=== PATIENT | male | born 1960 | race Caucasian/White ===

== ENCOUNTER → 2018-09-09 | Outpatient (CLI) | payer BC ==
--- NOTE | 2018-09-10 09:13 | US ---
EXAMINATION TYPE: US prostate transrectal DATE OF EXAM: 09/09/2018 COMPARISON: US CLINICAL HISTORY: Elevated PSA R97.20. Patient (physician) stated PSA at 4.4ng/ml; nighttime frequenc y per patient. This examination was performed using the transrectal probe. EXAM MEASUREMENTS: Gland Size: 5.4 x 5.6 x 4.8 Volume: 76.0ml Predicted PSA: 76.0 x 0.12ng/ml = 9.12ng/ml Actual PSA (if available):4.4ng/ml No masses seen in peripheral zone (PZ). Calcifications are noted in Central Zone near PZ border. Enla rged prostate gland as is greater than 30.0ml. There are few small well-circumscribed nodules in the central zone such as on image 13 and 14. IMPRESSION: Interval prostatic gland enlargement in comparison to the prior of 2016. Findings sugges ting mild degree benign prostatic hyperplasia. No discrete peripheral zone nodule. If there is a clin ically significant rise in PSA, MRI prostate could BE performed. Predicted PSA = volume x 0.12 ng/ml Calculated Volume = 0.5236 x L x W x H
== END ==
LOC: RADUSWWP 10:38
PROVIDERS: ATTEND Family Medicine
DX: N40.0 Benign prostatic hyperplasia without lower urinary tract symptoms (principal)
CPT/HCPCS: 76872

== ENCOUNTER 2021-08-25 07:08 | Day surgery (SDC) | payer BC ==
[2021-08-23 14:14] VITALS: BMI 27.1
[2021-08-25 07:21] VITALS: TEMP 98.2
[2021-08-25] MEDS ORDERED: hydrALAZINE HCL 20 MG/ML 1 ML VIAL IVP ONE ×2 (07:56→08:14)
[2021-08-25] MEDS ORDERED: LACTATED RINGERS 1,000 ML IV ONE (08:00)
[2021-08-25] MEDS ORDERED: PROPOFOL 10 MG/ML 20 ML VIAL IV ONE (08:25)
[2021-08-25] MEDS ORDERED: LIDOCAINE 1% INJ 10MG/ML (20 ML MDV) ONE (08:25)
--- NOTE | 2021-08-25 08:44 | P.PCN ---
Date of Procedure: 08/25/21 Procedure(s) Performed: BRIEF HISTORY: Patient is a 61-year-old pleasant male scheduled for an elective colonoscopy as a part of evaluation of prior history of colon polyps. Last coloscopy was 5 years ago. PROCEDURE PERFORMED: Colonoscopy. PREOPERATIVE DIAGNOSIS: History of colon polyps. IV sedation per Anesthesia. PROCEDURE: After informed consent was obtained, the patient, was brought into the endoscopy unit. IV sedation was administered by Anesthesia under continuous monitoring. Digital rectal examination was normal. Initially the Olympus CF-160 flexible video colonoscope was then inserted in the rectum, gradually advanced into the cecum without any difficulty. Careful examination was performed as the scope was gradually being withdrawn. Ileocecal valve and the appendiceal orifice were visualized and appeared normal. Prep was excellent. Mucosa of the cecum, ascending colon, transverse colon, descending colon, sigmoid colon, and rectum appeared normal. Retroflexion was performed in the rectum and small internal hemorrhoids were seen. The patient tolerated the procedure well. IMPRESSION: Normal-appearing colon from rectum to cecum with no evidence of colorectal neoplasia. Small internal hemorrhoids. RECOMMENDATIONS: Findings of this examination were discussed with the patient as well as his family. He was advised to have a repeat colonoscopy in 5 years from now because of the prior history of colon polyps..
[2021-08-25 09:02] VITALS: BP 146/92; PULSE 75; RESP 16
== END 2021-08-25 09:15 | disposition home or self-care (01) ==
LOC: ORWHC2ENDO 07:08
PROVIDERS: ATTEND Internal Medicine Gastroenterology
DX: Z12.11 Encounter for screening for malignant neoplasm of colon (principal); Z86.010 Personal history of colon polyps; K64.8 Other hemorrhoids; I10 Essential (primary) hypertension; Z79.82 Long term (current) use of aspirin
CPT/HCPCS: 45378; J0360; J2001; J2704

== ENCOUNTER → 2023-01-18 | Outpatient (CLI) | payer BC ==
--- NOTE | 2023-01-19 12:30 | MR ---
EXAMINATION TYPE: MR Prostate wo/w con DATE OF EXAM: 01/18/2023 10:37 AM COMPARISON: Ultrasound 09/09/2018 and 05/15/2016 CLINICAL INDICATION:Male, 62 years old with history of R97.20 elevated PSA; TECHNIQUE: Multi-planar, multi-sequence imaging of the pelvis is performed prior to and following the uncomplicated administration of bolus intravenous gadolinium. CONTRAST: 8.5 Gadavist Interpretive Criteria: PI-RADS v2.1 SERUM PSA: 9.9 on 11/21/2022. 20.3 on 07/19/2021. SURGICAL PATHOLOGY: No data available. FINDINGS: Prostatic dimensions: 6.1 x 6.1 x 5.1 cm. Ellipsoid Volume: 99.36 (PSA density=0.10 ng/mL/mL) CENTRAL GLAND (Central and Transition Zones/CZ+TZ): Multiple bilateral, heterogenous appearing hypertrophic stromal nodules, without suspicious lesion. M edian lobe hypertrophy with protrusion into the base of the bladder. (PI-RADS 2) PERIPHERAL ZONE (PZ): Limited evaluation of the posterior peripheral zone secondary to gas within the rectum. Bilateral linear, indistinct wedgelike areas of low ADC, and low T2 signal, No evidence of masslike a bnormality, or localized perfusional hypervascularity, to further suggest a focus of clinically signi ficant prostate cancer. (PI-RADS 2) SEMINAL VESICLES (SV): Symmetric and unremarkable. PERIPROSTATIC TISSUES: Unremarkable. LYMPH NODES: No enlarged pelvic lymph node. REMAINING PELVIS: Bladder wall is within normal limits given distention. No abnormal free or organized intrapelvic fluid collection. No pathologic bowel dilation or mural thickening. Trace bilateral hydroceles. Bilateral fat-containing inguinal hernias. Scattered colonic diverticula. OSSEOUS STRUCTURES: No suspicious osseous abnormality. IMPRESSION: 1. No specific features for high-risk prostate cancer. Maximum PI-RADS score: 2. 2. Substantial BPH, estimated gland volume 99.36 mL.
== END | disposition home or self-care (01) ==
LOC: RADMRIMAIN 09:49
PROVIDERS: ATTEND Urology
DX: N40.0 Benign prostatic hyperplasia without lower urinary tract symptoms (principal); R97.20 Elevated prostate specific antigen [PSA]
CPT/HCPCS: 72197; A9585